=== PATIENT | female | born 1955 ===

== ENCOUNTER 2018-09-01 17:47 | Emergency (ER) | payer MEDICAID ==
--- NOTE | 2018-09-01 20:43 | C.PDOC ---
History Of Present Illness Patient is a 63 year old female with pmhx of DM(untreated), hypothyroidism, presenting to ED with complaints of abdominal pain for 2 weeks, and diarrhea since friday. Patient reports severe constant periumbilical pain, worse post- prandial, fever like symptoms of feeling hot/chills. Patient reports loose watery diarrhea 10-20 episodes daily and nausea since friday. Currently diarrhea has improved, with 2 BMs today, stool more formed. Pt reports black urine yesterday which has since resolved. Reports recent travel to [facility] 3 weeks ago; denies sick contacts. Denies vomiting, hematochezia, melena. Time Seen by Provider: 09/01/18 20:22 Chief Complaint (Nursing): Abdominal Pain History Per: Patient, Family History/Exam Limitations: physical impairment (hearing impaired) Onset/Duration Of Symptoms: Days, Worse Since Current Symptoms Are (Timing): Still Present Context: Travel Severity: Moderate Pain Scale Rating Of: 6 Location Of Pain/Discomfort: Periumbilical Radiation Of Pain To:: None Quality Of Discomfort: "Pain" Associated Symptoms: Fever, Chills, Nausea, Diarrhea. denies: Vomiting, Chest Pain, Urinary Symptoms Exacerbating Factors: Food Last Bowel Movement: Today Recent travel outside of the [place]: Yes ([facility]) Additional History Per: Family Abnormal Vaginal Bleeding: No Last Menstral Period: 1996 Past Medical History Reviewed: Historical Data, Nursing Documentation, Vital Signs Vital Signs: Last Vital Signs Temp 97.7 F 09/01/18 17:49 Pulse 69 09/01/18 17:49 Resp 18 09/01/18 17:49 BP 123/70 09/01/18 17:49 Pulse Ox 99 09/01/18 17:49 - Medical History PMH: Diabetes, Hypothyroidism Other Surgeries: Hysterectomy Family History: States: Diabetes - Social History Hx Tobacco Use: No Hx Alcohol Use: No Hx Substance Use: No - Immunization History Hx Tetanus Toxoid Vaccination: Yes Hx Influenza Vaccination: Yes Hx Pneumococcal Vaccination: Yes Review Of Systems Constitutional: Positive for: Fever, Chills, Sweats, Weakness Cardiovascular: Negative for: Chest Pain, Palpitations Respiratory: Negative for: Cough, Shortness of Breath Gastrointestinal: Positive for: Nausea, Abdominal Pain. Negative for: Vomiting, Diarrhea, Melena, Hematochezia Genitourinary: Negative for: Dysuria, Hematuria Skin: Negative for: Rash Physical Exam - Physical Exam Appears: Non-toxic, No Acute Distress Skin: Normal Color, Warm, Dry, No Rash Head: Atraumatic, Normacephalic Eye(s): bilateral: Normal Inspection, PERRL, EOMI, Other (conjunctival injection) Oral Mucosa: Moist Neck: Normal Cardiovascular: Rhythm Regular, No Murmur Respiratory: Normal Breath Sounds, No Rales, No Rhonchi Gastrointestinal/Abdominal: Bowel Sounds, Soft, Tenderness (periumbilical), No Distention, No Guarding, No Rebound Neurological/Psych: Oriented x3 ED Course And Treatment - Laboratory Results Result Diagrams: 09/01/18 20:53 09/01/18 20:53 Lab Interpretation: Normal ECG Rhythm: Sinus Rhythm ECG Interpretation: Normal Rate From EC O2 Sat by Pulse Oximetry: 99 Pulse Ox Interpretation: Normal - CT Scan/US Abdomen/Pelvis Other Rad Studies (CT/US): Radiology Report Reviewed CT/US Interpretation: Evidence of colitis involving the lower-mid ascending colon. Findings compatible with mesenteric adenitis. Incidental discovery of a 2.8 x 4.5 cm lipoma in the posterior lateral inferior left pelvic floor. Status post hysterectomy Medical Decision Making Medical Decision Makin63 year old female with abdominal pain, nausea, diarrhea CBC CMP Lipase UA EKG CT A/P w/ IV contrast Stool culture Ova and parasites Toradol IV Pepcid IV IVF Tylenol Disposition Counseled Patient/Family Regarding: Studies Performed, Diagnosis, Need For Followup - Disposition Referrals: [facility] [Outside] [facility] [Outside] Disposition: HOME/ ROUTINE Disposition Time: 23:45 Condition: STABLE Additional Instructions: Patient is stable for discharge home. Patient encouraged to maintain adequate fluid intake. Patient instructed to maintain a bland soft diet as tolerated Patient instructed to take over the counter Motrin/Ibuprofen 400mg-600mg 3 times per day as needed for pain. Patient instructed to follow up with your PMD within several days upon discharge. Patient encouraged to follow up with PMD or return to ED with any worsening of symptoms Instructions: Colitis (DC), Mesenteric Lymphadenitis (DC) Forms: [employer] (Taiwanese), [employer] (Vietnamese) Print Language: TURKMEN - POA Present On Arrival: None - Clinical Impression Clinical Impression: Colitis, Mesenteric adenitis
[2018-09-01 20:58] VITALS: RESP 16
[2018-09-01 21:01] LABS: BASO % 0.6 % (0.0-2.0); EOS # 0.1 K/uL (0.0-0.7); EOS % 2.1 % (0.0-4.0); HEMOGLOBIN 13.6 g/dL (11.0-16.0); LYMPH # 1.7 K/uL (1.0-4.3); LYMPH % 30.3 % (20.0-40.0); MEAN CELL VOLUME 89.9 fL (81.0-99.0); MEAN CORPUSCULAR HEMOGLOBIN 30.3 pg (27.0-31.0); MEAN CORPUSCULAR HGB CONC 33.7 g/dL (33.0-37.0); MEAN PLATELET VOLUME 9.4 fL (7.2-11.7); MONO % 18.6 % (0.0-10.0); NEUT # 2.7 K/uL (1.8-7.0); NEUT % 48.4 % (50.0-75.0); RBC 4.51 Mil/uL (3.80-5.20); RED CELL DISTRIBUTION WIDTH 12.6 % (11.5-14.5); WHITE BLOOD COUNT 5.6 K/uL (4.8-10.8)
[2018-09-01 21:06] LABS: SQUAMOUS EPITHIAL < 1 /hpf (0-5); URINE BACTERIA OCC (<OCC); URINE BILIRUBIN NEGATIVE (NEGATIVE); URINE BLOOD 1+ (NEGATIVE); URINE CLARITY Clear (Clear); URINE COLOR Yellow (YELLOW); URINE GLUCOSE (UA) NORMAL (Normal); URINE LEUKOCYTE ESTERASE TRACE Leu/uL (Negative); URINE PROTEIN NEGATIVE (NEGATIVE); URINE UROBILINOGEN NORMAL mg/dL (0.2-1.0)
[2018-09-01 21:20] LABS: ALB/GLOB RATIO 1.3 (1.0-2.1); ALBUMIN 4.1 g/dL (3.5-5.0); ALT/SGPT 30 U/L (9-52); AST/SGOT 40 U/L (14-36); BLOOD UREA NITROGEN 13 mg/dL (7-17); CALCIUM 8.7 mg/dl (8.6-10.4); GFR NON-AFRICAN AMERICAN > 60; LIPASE 117 U/L (23-300)
[2018-09-01] MEDS ORDERED: Sodium Chloride 0.9% 1,000 ML IV SCH (21:30)
[2018-09-01] MEDS ORDERED: Sodium Chloride 0.9% 1,000 ML ONE (21:35)
[2018-09-01] MEDS ORDERED: Iodixanol 320 MG/ML 100 ML BOTTLE IV ONE (22:04)
[2018-09-01 23:50] VITALS: BP 114/76; PULSE 72; TEMP 98.9
[2018-09-01 23:51] VITALS: O2SAT 99
--- NOTE | 2018-09-02 08:30 | CT ---
Date of service: 09/01/2018 PROCEDURE: CT Abdomen and Pelvis with and without intravenous contrast HISTORY: abdominal pain COMPARISON: None. TECHNIQUE: Axial images of the abdomen were obtained in the pre contrast, portal venous and delayed phases of enhancement. Coronal and sagittal reformats were generated. Contrast dose: Radiation dose: Total exam DLP = 656.35 mGy-cm. This CT exam was performed using one or more of the following dose reduction techniques: Automated exposure control, adjustment of the mA and/or kV according to patient size, and/or use of iterative reconstruction technique. FINDINGS: LOWER THORAX: Unremarkable. LIVER: Unremarkable. No gross lesion or ductal dilatation. GALLBLADDER AND BILE DUCTS: Unremarkable. PANCREAS: Unremarkable. No gross lesion or ductal dilatation. SPLEEN: Unremarkable. ADRENALS: Unremarkable. No mass. KIDNEYS AND URETERS: Unremarkable. No hydronephrosis. No solid mass. VASCULATURE: Unremarkable. No aortic aneurysm. No aortic atherosclerotic calcification or mural plaque present. BOWEL: Unremarkable. No obstruction. No gross mural thickening. APPENDIX: Normal appendix. PERITONEUM: Unremarkable. No free fluid. No free air. LYMPH NODES: Scattered mesenteric lymph nodes compatible with mesenteric adenitis. BLADDER: Unremarkable. REPRODUCTIVE: Hysterectomy. BONES: No acute fracture. OTHER FINDINGS: 2.8 x 4.5 centimeter lipoma in the posterior lateral inferior left pelvic floor. IMPRESSION: 2.8 x 4.5 centimeter lipoma in the posterior lateral inferior left pelvic floor. Hysterectomy. Scattered mesenteric lymph nodes compatible with mesenteric adenitis.
--- NOTE | 2018-09-03 14:02 | CARD ---
APPROVED REPORT Date of service: 09/01/2018 EKG Measurement Heart [id number] <Conclusion> Normal sinus rhythm Normal ECG
== END 2018-09-02 00:09 | disposition home or self-care (01) ==
LOC: C.ER 17:47
DX: K52.9 Noninfective gastroenteritis and colitis, unspecified (principal); I88.0 Nonspecific mesenteric lymphadenitis
CPT/HCPCS: 74177; 80053; 81001; 83690; 83735; 84100; 85025; 93005; 96374; 96375; 99285; J1885; J7030; Q9967